=== PATIENT | male | born 1965 | race Caucasian/White ===

== ENCOUNTER 2018-12-13 07:59 | Day surgery (SDC) | payer BC ==
[2018-12-13] MEDS ORDERED: SOD CHLORIDE 0.45% 1,000 ML IV (08:00)
[2018-12-13] MEDS ORDERED: HEPARIN 1000 UNITS/NS (A-LINE) 1,000 ML (08:40)
[2018-12-13] MEDS ORDERED: LIDOCAINE 1% (MDV) 20 ML INJ (08:40)
[2018-12-13] MEDS: DIAZEPAM 5 MG TAB PO (08:53)
[2018-12-13 08:54] LABS: ADD MAN DIFF? NO
[2018-12-13] MEDS: FAMOTIDINE 20 MG TAB PO (08:54)
[2018-12-13] MEDS: DIPHENHYDRAMINE 50 MG CAP PO (08:54)
[2018-12-13 08:57] LABS: BASOPHIL # 0.1 10^3/ul (0.0-0.1); BASOPHILS % 0.7 % (0.0-2.0); EOSINOPHILS # 0.2 10^3/ul (0.0-0.5); EOSINOPHILS % 2.9 % (0.0-7.0); HEMATOCRIT 40.5 % (42.0-52.0); HEMOGLOBIN 13.2 g/dl (14.0-18.0); LYMPHOCYTES # 2.2 10^3/ul (0.8-2.9); LYMPHOCYTES % 29.5 % (15.0-51.0); MEAN CORPUSCULAR HEMOGLOBIN 29.7 pg (29.0-33.0); MEAN CORPUSCULAR HGB CONC 32.6 g/dl (32.0-37.0); MEAN PLATELET VOLUME 10.5 fl (7.4-10.4); MONOCYTE # 0.5 10^3/ul (0.3-0.9); MONOCYTES % 6.8 % (0.0-11.0); NEUTROPHIL # 4.5 10^3/ul (1.6-7.5); NEUTROPHILS % 59.8 % (39.0-77.0); PLATELET COUNT 135 10^3/UL (140-415); POSITIVE DIFF @See below; RED BLOOD COUNT 4.45 10^6/ul (4.70-6.10); RED CELL DISTRIBUTION WIDTH 14.8 % (11.5-14.5)
[2018-12-13 08:57] LABS: WHITE BLOOD COUNT 7.5 10^3/ul (4.8-10.8)
[2018-12-13] MEDS ORDERED: HEPARIN 1000 UNITS/ML 10 ML INJ (08:58)
[2018-12-13] MEDS ORDERED: IODIXANOL LOCM 100 ML BTL ×2 (08:58→10:16)
[2018-12-13] MEDS ORDERED: VERAPAMIL 5 MG INJ (08:58)
[2018-12-13] MEDS ORDERED: NITROGLYCERIN (IC) 100 MCG/ML INJ (08:59)
[2018-12-13 09:16] LABS: INR 1.06; PARTIAL THROMBOPLASTIN TIME 29.2 Sec (23.0-35.0); PROTIME 13.9 Sec (11.9-14.9); PT RATIO 1.1
[2018-12-13 09:22] LABS: ANION GAP 8 (5-13); BLOOD UREA NITROGEN 14 mg/dl (7-20); CALCIUM 9.6 mg/dl (8.4-10.2); CARBON DIOXIDE 22 mmol/L (21-31); CHLORIDE 110 mmol/L (97-110); CHOLESTEROL 200 mg/dl (100-200); CREATININE 0.97 mg/dl (0.61-1.24); Estimated GFR > 60 mL/min (>60); GLUCOSE 130 mg/dl (70-220); HDL CHOLESTEROL 25 mg/dl (28-71); LDL CHOLESTEROL,CALCULATED 119 mg/dl; POTASSIUM 3.9 mmol/L (3.5-5.1); SODIUM 140 mmol/L (135-144); TRIGLYCERIDES 282 mg/dl (0-149)
[2018-12-13] MEDS ORDERED: FENTAnyl 50 MCG/ML VIAL (09:30)
[2018-12-13] MEDS ORDERED: MIDAZOLAM 1 MG/ML 2 ML INJ (09:31)
[2018-12-13] MEDS: SOD CHLORIDE 0.9% 1,000 ML IV (10:31)
[2018-12-13] MEDS ORDERED: morphine 2 MG INJ IV (11:00)
[2018-12-13] MEDS ORDERED: ONDANSETRON 4 MG INJ IV (11:00)
[2018-12-13] MEDS ORDERED: AL HYDROX/MG HYDROX/SIMETH 30 ML CUP PO (11:00)
[2018-12-13] MEDS ORDERED: ACETAMINOPHEN 325 MG TAB PO (11:00)
== END 2018-12-13 13:30 | disposition home or self-care (01) ==
LOC: SDS 07:59
DX: I25.10 Atherosclerotic heart disease of native coronary artery without angina pectoris (principal); I10 Essential (primary) hypertension; K21.9 Gastro-esophageal reflux disease without esophagitis; F17.210 Nicotine dependence, cigarettes, uncomplicated; I25.2 Old myocardial infarction; Z79.01 Long term (current) use of anticoagulants
CPT/HCPCS: 71045; 80048; 80061; 85025; 85610; 85730; 93005; 93458